=== PATIENT | male | born 1985 | race African-American/Black ===

== ENCOUNTER 2024-06-16 12:31 | Emergency (ER) | payer BC, MEDICAID ==
[~2024-06-16] VITALS: Ht 172.7 cm; Wt 81.0 kg
[2024-06-16 12:42] VITALS: O2SAT 99
[2024-06-16 12:59] VITALS: BP 131/92; PULSE 72; RESP 16; TEMP 36.6; O2SAT 99
[2024-06-16] MEDS ORDERED: LIDOCAINE HCL/PF 1% 10 MG/ML 5ML VIAL INFIL ONE (13:30)
[2024-06-16] MEDS ORDERED: BACITRACIN ZINC OINT UDPKT TOP ONE (13:30)
[2024-06-16] MEDS ORDERED: CEPH500C2 MT (14:06)
[2024-06-16] MEDS ORDERED: SULF1TAB48 MT (14:06)
== END 2024-06-16 14:53 | disposition home or self-care (01) ==
LOC: ER 12:31
DX: L03.313 Cellulitis of chest wall (principal); I10 Essential (primary) hypertension; E11.9 Type 2 diabetes mellitus without complications
CPT/HCPCS: 10060; 99283; J2003; Z7610 ×3